=== PATIENT | female | born 1990 | race Caucasian/White ===

== ENCOUNTER 2020-03-20 | Emergency (ER) | payer OTHER ==
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
== END 2020-03-20 13:04 | disposition home or self-care (01) ==
CPT/HCPCS: 99281